=== PATIENT | female | born 1980 | race African-American/Black ===

== ENCOUNTER 2016-12-04 11:28 | Inpatient (IN) | payer OTHER ==
[2016-12-04 12:20] VITALS: BMI 35.4
--- NOTE | 2016-12-04 13:07 | HP ---
CIWA Score - CIWA Score Nausea/Vomitin-Int. Nausea w/Dry Heave Muscle Tremors: 4-Moderate,w/Arms Extend Anxiety: 4-Mod. Anxious/Guarded Agitation: 0-Normal Activity Paroxysmal Sweats: 3 Orientation: 0-Oriented Tacttile Disturbances: 0-None Auditory Disturbances: 0-None Visual Disturbances: 3-Moderate Sensitivity Headache: 0-None Present CIWA-Ar Total Score: 18 Admission ROS S - HPI Chief Complaint: "I am willing and ready for help for my long haul of drug abuse." Pt. is here to Detox from Alcohol. History of Present Illness: Pt. is a 36 YO female here to Detox from Alcohol. This is pt.'s first Detox admission at [facility]. Pt. had a Rehab admission at [facility] in 10/2016 and 11/2015 (did not complete either time). Longest period of sobriety: approx. 5 months (12/2015 - 04/2016). Exam Limitations: No Limitations - Ebola screening Have you traveled outside of the country in the last 21 days: No Have you had contact with anyone from an Ebola affected area: No Have you been sick,other than usual withdrawal symptoms: No Do you have a fever: No - Review of Systems Constitutional: Diaphoresis, Fever, Malaise, Changes in sleep EENT: reports: Tinnitus (Right Ear, Intermittent.) Respiratory: reports: SOB with Exertion, Productive cough Cardiac: reports: No Symptoms Reported GI: reports: Constipated, Nausea, Indigestion, Abdominal cramping : reports: No Symptoms Reported Musculoskeletal: reports: Joint Pain, Muscle Pain, Joint Stiffness Integumentary: reports: No Symptoms Reported Neuro: reports: Tremors Endocrine: reports: No Symptoms Reported Hematology: reports: No Symptoms Reported Psychiatric: reports: Judgement Intact, Mood/Affect Appropiate, Orientated x3, Anxious, Depressed (On Meds.) Other Systems: Reviewed and Negative Patient History - Patient Medical History Hx Anemia: No Hx Asthma: Yes (Takes Advair and uses Ventolin Inhaler.) Hx Chronic Obstructive Pulmonary Disease (COPD): No Hx Cancer: No Hx Cardiac Disorders: No Hx Congestive Heart Failure: No Hx Hypertension: No Hx Hypercholesterolemia: No Hx Pacemaker: No HX Cerebrovascular Accident: No Hx Seizures: No Hx Dementia: No Hx Diabetes: No Hx Gastrointestinal Disorders: No Hx Liver Disease: No Hx Genitourinary Disorders: No Hx Sexually Transmitted Disorders: No (Herpes Simplex (Oral); Not currently active.) Hx Renal Disease (ESRD): No Hx Thyroid Disease: No Hx Human Immunodeficiency Virus (HIV): No (Last Tested: 02/2016: NEGATIVE.) Hx Hepatitis C: No (Last Tested: 02/2016: NEGATIVE.) Hx Depression: Yes (On meds.) Hx Suicide Attempt: Yes (2016: OD meds.; PATIENT DENIES CURRENT SI / HI.) Hx Bipolar Disorder: Yes (On meds.) Hx Schizophrenia: No Other Medical History: DENIES. - Patient Surgical History Past Surgical History: No Hx Neurologic Surgery: No Hx Cataract Extraction: No Hx Cardiac Surgery: No Hx Lung Surgery: No Hx Breast Surgery: No Hx Breast Biopsy: No Hx Abdominal Surgery: No Hx Appendectomy: No Hx Cholecystectomy: No Hx Genitourinary Surgery: No Hx Section: No Hx Orthopedic Surgery: No Hx Hysterectomy: No Anesthesia Reaction: No - PPD History Previous Implant?: Yes Documented Results: Negative w/o proof Implanted On Prior [facility] Admission?: No PPD to be Administered?: Yes - Reproductive History Patient is a Female of Child Bearing Age (11 -55 yrs old): Yes Last Menstrual Period: 11/05/16 Patient : No - Smoking Cessation Smoking history: Current every day smoker Have you smoked in the past 12 months: Yes Aproximately how many cigarettes per day: 20 Cigars Per Day: 0 Hx Chewing Tobacco Use: No Initiated information on smoking cessation: Yes 'Breaking Loose' booklet given: 12/04/16 (GIVEN ON UNIT.) - Substance & Tx. History Hx Alcohol Use: Yes Hx Substance Use: Yes Substance Use Type: Alcohol, Marijuana Hx Substance Use Treatment: Yes (Previous Rehab admissions at [facility] (11/22 and 10/23).) - Substances Abused Alcohol Route: Oral Frequency: 3-6 times per week Amount used: 1.5 pints Vodka; 1 beer (22 oz.) Age of first use: 18 Date of Last Use: 12/02/16 Marijuana/Hashish Route: Smoking Frequency: Daily Amount used: 4-5 Joints. Age of first use: 23 Date of Last Use: 12/03/16 Family Disease History - Family Disease History Family Disease History: Diabetes: Sister, Respiratory: Son (Asthma; Tuberculosis (Treated).), Daughter (Asthma.) Admission Physical Exam [facility] - Vital Signs Vital Signs: Vital Signs - 24 hr 12/04/16 12:18 Temperature 98.3 F Pulse Rate 92 H Respiratory 18 Rate Blood Pressure 120/72 - Physical General Appearance: Yes: No Apparent Distress, Nourished, Appropriately Dressed , Tremorous, Anxious HEENTM: Yes: Hearing grossly Normal, Normocephalic, Normal Voice, IVAN, Pharynx Normal Respiratory: Yes: Chest Non-Tender, Lungs Clear, No Respiratory Distress, No Accessory Muscle Use Neck: Yes: No masses,lesions,Nodules, Supple, Trachea in good position Breast: Yes: Breast Exam Deferred Cardiology: Yes: Regular Rhythm, Regular Rate, S1, S2 Abdominal: Yes: Normal Bowel Sounds, Non Tender, Soft, Protuberent Genitourinary: Yes: Within Normal Limits Back: Yes: Decreased Range of Motion Musculoskeletal: Yes: Gait Steady, Joint Stiffness Extremities: Yes: Tremors Neurological: Yes: Fully Oriented, Alert, Normal Mood/Affect, Normal Response Integumentary: Yes: Normal Color, Dry, Warm Lymphatic: Yes: Within Normal Limits - Diagnostic (1) Alcohol dependence with uncomplicated withdrawal Current Visit: Yes Status: Acute (2) Cannabis dependence, uncomplicated Current Visit: Yes Status: Acute (3) Nicotine dependence Current Visit: Yes Status: Chronic Qualifiers: Nicotine product type: cigarettes Substance use status: uncomplicated Qualified Code(s): F17.210 - Nicotine dependence, cigarettes, uncomplicated (4) Asthma Current Visit: Yes Status: Chronic Qualifiers: Asthma severity: mild intermittent Asthma complication type: uncomplicated Qualified Code(s): J45.20 - Mild intermittent asthma, uncomplicated (5) History of bipolar disorder Current Visit: Yes Status: Chronic (6) History of depression Current Visit: Yes Status: Chronic Cleared for Admission [facility] - Detox or Rehab [facility] Level of Care: Medically Managed Detox Regimen/Protocol: Librium [facility] Breath Alcohol Content Breath Alcohol Content: 0 Urine Pregancy Test - Result Urine Test Results: Negative- NO Line Present Urine Drug Screen - Results Drug Screen Negative: No Urine Drug Screen Results: THC-Marijuana, OPI-Opiates
[2016-12-04] MEDS ORDERED: chlordiazePOXIDE HCL 25 MG CAPSULE PO PRN (15:49)
[2016-12-04] MEDS ORDERED: guaiFENesin/D-METHORPHAN HB 10 ML UNIT-DOSE CUPS PO PRN (15:49)
[2016-12-04] MEDS ORDERED: diphenhydrAMINE HCL 50 MG CAPSULE PO PRN (15:49)
[2016-12-04] MEDS ORDERED: ACETAMINOPHEN 325 MG TABLET (FP) PO PRN (15:49)
[2016-12-04] MEDS ORDERED: IBUPROFEN 400 MG TABLET (FP) PO PRN (15:49)
[2016-12-04] MEDS ORDERED: NICOTINE POLACRILEX 2 MG GUM BC PRN (15:49)
[2016-12-04] MEDS ORDERED: MAGNESIUM HYDROX 2400MG/30ML ORAL SUSPENSION 30 ML CUP PO PRN (15:49)
[2016-12-04] MEDS ORDERED: MAGNESIUM CITRATE 300 ML BOTTLE PO PRN (15:49)
[2016-12-04] MEDS ORDERED: hydrOXYzine PAMOATE 50 MG CAPSULE (FP) PO PRN (15:49)
[2016-12-04] MEDS ORDERED: chlordiazePOXIDE HCL 25 MG CAPSULE PO ONE (15:49)
[2016-12-04] MEDS ORDERED: P-EPHED 60MG/TRIPROLIDI 2.5MG TABLET PO PRN (15:49)
[2016-12-04] MEDS ORDERED: MAG HYDROX/AL HYDROX/SIMETH 30 ML UNIT-DOSE CUP PO PRN (15:49)
[2016-12-04] MEDS ORDERED: MENTHOL/PHENOL 1 EACH UD MM PRN (15:49)
[2016-12-04] MEDS ORDERED: LOPERAMIDE HCL 2 MG CAPSULE PO PRN (15:49)
[2016-12-04] MEDS ORDERED: ALBUTEROL SO4 6.7 GM HFA INHALER IH PRN (15:55)
[2016-12-04] MEDS ORDERED: NICOTINE 21 MG/24 HOURS TOPICAL PATCH TD SCH (17:30)
[2016-12-04] MEDS: chlordiazePOXIDE HCL 25 MG CAPSULE PO SCH ×2 (17:55→22:54)
[2016-12-04] MEDS ORDERED: BUDESONIDE/FORMETEROL FUMARATE 80/4.5 mcg INHALER IH SCH (22:00)
[2016-12-04] MEDS ORDERED: THIAMINE HCL 100 MG TABLET (FP) PO SCH (22:00)
[2016-12-04 22:05] LABS: URINE APPEARANCE CLEAR; URINE BILIRUBIN NEGATIVE (NEGATIVE); URINE BLOOD NEGATIVE (NEGATIVE); URINE COLOR LTYELLOW; URINE GLUCOSE (UA) NEGATIVE (NEGATIVE); URINE KETONE NEGATIVE (NEGATIVE); URINE LEUK ESTERASE NEGATIVE (NEGATIVE); URINE NITRITE NEGATIVE (NEGATIVE); URINE PROTEIN NEGATIVE (NEGATIVE); URINE UROBILINOGEN NEGATIVE mg/dL (0.2-1.0)
[2016-12-04 22:50] VITALS: PULSE 61
[2016-12-05 06:40] VITALS: BP 134/84; TEMP 97.9
[2016-12-05] MEDS: chlordiazePOXIDE HCL 25 MG CAPSULE PO SCH ×2 (06:48→11:53)
[2016-12-05 09:36] LABS: MCH 29.1 pg (25.7-33.7); MCHC 33.3 g/dl (32.0-36.0); MEAN CELL VOLUME 87.5 fl (80-96); MEAN PLT VOLUME 10.4 fl (7.5-11.1); PLATELET COUNT 182 K/MM3 (134-434); WHITE BLOOD COUNT 8.7 K/mm3 (4.0-10.0)
--- NOTE | 2016-12-05 09:38 | PN ---
[facility] Progress Note Note: pt was asked how she was doing she jumped out her bed, marched out of her room, cursing, screaming, threatening entire staff. counselor and medical staff tried to calm her down and make reason as to her needs, but she refused to comply to directions and became verbally abusive and verbally combative. Security called for pt to be escorted off the unit. Pt is AAOx3, ambulating, property given to pt.
--- NOTE | 2016-12-05 09:39 | DS ---
[facility] Detox Discharge Summary Admission Date: 12/04/16 Discharge Date: 12/05/16 - History Present History: Alcohol Dependence, Cannabis Dependence - Physical Exam Results Vital Signs: Vital Signs Temperature 97.9 F 12/05/16 06:00 Pulse Rate 61 12/05/16 06:00 Respiratory Rate 18 12/05/16 06:00 Blood Pressure 134/84 12/05/16 06:00 O2 Sat by Pulse Oximetry (%) - Treatment Hospital Course: Detox Protocol Followed, Detoxed Safely, Responded well, Discharged Condition Good, Rehab Referral Accepted - Medication Discharge Medications: Ambulatory Orders Albuterol Sulfate Inhaler - [Ventolin Hfa Inhaler -] 2 inh PO Q4H PRN 12/04/16 Aripiprazole [Abilify -] 5 mg PO DAILY 12/04/16 Divalproex Sodium [Depakote] 250 mg PO BID 12/04/16 Paroxetine HCl [Paxil -] 10 mg PO DAILY 12/04/16 Salmeterol/Fluticasone [Advair 250Mcg/50Mcg -] 1 puff IH BID 12/04/16 - Diagnosis (1) Alcohol dependence with uncomplicated withdrawal Status: Chronic (2) Cannabis dependence, uncomplicated Status: Chronic (3) Asthma Status: Chronic Qualifiers: Asthma severity: mild intermittent Asthma complication type: uncomplicated (4) History of bipolar disorder Status: Chronic (5) History of depression Status: Chronic (6) Nicotine dependence Status: Chronic Qualifiers: Nicotine product type: cigarettes Substance use status: uncomplicated Qualified Code(s): F17.210 - Nicotine dependence, cigarettes, uncomplicated; F17.210 - Nicotine dependence, cigarettes, uncomplicated - AMA Did Patient Leave Against Medical Advice: No (non compliant with unit rules)
[2016-12-05 09:56] LABS: SICKLE CELL SCREEN NEGATIVE (NEGATIVE)
--- NOTE | 2016-12-05 09:57 | EKG ---
Test Reason : Blood Pressure : / mmHG Vent. Rate : 066 BPM Atrial Rate : 066 BPM P-R Int : 166 ms QRS Dur : 090 ms QT Int : 388 ms P-R-T Axes : 034 045 018 degrees QTc Int : 406 ms NORMAL SINUS RHYTHM INCOMPLETE RBBB NO PREVIOUS ECGS AVAILABLE Confirmed by FERMÍN LLOYD MD ([id number]) on 12/05/2016 9:56:35 AM Referred By: Luciano Blanco Confirmed By:FERMÍN LLOYD MD
[2016-12-05] MEDS ORDERED: PRENATAL VITAMINS W/ FOLIC ACID TABLET (FP) PO SCH (10:00)
[2016-12-05 10:07] LABS: ALBUMIN 3.6 g/dl (3.4-5.0); ALK PHOS 74 U/L (45-117); ANION GAP 5 (8-16); BILIRUBIN,TOTAL 0.3 mg/dL (0.2-1.0); CO2 25 mmol/L (21-32); GLUCOSE,RANDOM 75 mg/dL (74-106); SGOT/AST 12 U/L (15-37); SGPT/ALT 18 U/L (12-78); TOT PROT 7.1 g/dl (6.4-8.2)
[2016-12-05 10:14] LABS: HIV 1 & 2 AB NEGATIVE; HIV 1 AGp24 NEGATIVE
[2016-12-05] MEDS ORDERED: chlordiazePOXIDE HCL 25 MG CAPSULE PO SCH (17:00)
[2016-12-06] MEDS ORDERED: chlordiazePOXIDE 5 MG CAPSULE PO SCH (17:00)
[2016-12-07] MEDS ORDERED: chlordiazePOXIDE HCL 10 MG CAPSULE PO SCH (17:00)
== END 2016-12-05 08:30 | disposition home or self-care (01) | DRG 775 ==
LOC: YASAS 11:28 → Y6N 16:34
PROVIDERS: ADMIT Internal Medicine; ATTEND Internal Medicine
PROC: HZ2ZZZZ Detoxification Services for Substance Abuse Treatment (ICD-10-PCS; principal; 2016-12-04)
DX: F10.230 Alcohol dependence with withdrawal, uncomplicated (principal); F12.20 Cannabis dependence, uncomplicated; F17.210 Nicotine dependence, cigarettes, uncomplicated; F31.9 Bipolar disorder, unspecified; J45.20 Mild intermittent asthma, uncomplicated; Z91.5 Personal history of self-harm
CPT/HCPCS: 36415; 80053; 80164; 81003; 85027; 85660; 86593; 86803; 87389; 93005; 93010

== ENCOUNTER 2017-12-08 13:57 | Inpatient (IN) | payer OTHER ==
[2017-12-08 14:44] VITALS: BMI 34.8
--- NOTE | 2017-12-08 15:55 | HP ---
Admission [facility] Chief Complaint: Patient presents for rehab services for Marajuana dependence. Allergies/Adverse Reactions: Allergies Allergy/AdvReac Type Severity Reaction Status Date / Time haloperidol [From Haldol] AdvReac STIFFNESS Verified 12/08/17 15:16 haloperidol lactate AdvReac STIFFNESS Verified 12/08/17 15:16 [From Haldol] History of Present Illness: Patient presents for rehab services for Marajuana dependence. Patient started smoking marajuana since age 26. Amount she smokes varies and dependent on mood. Last time she smoked was last night. PMH includes Bipolar disorder, tobacco use and asthma. Last attempt at rehab was one year ago here at [facility]. Patient denies using any other substance. Non-compliant with psychiatric medication. Denies SI/ HI. Exam Limitations: No Limitations - Ebola screening Have you traveled outside of the country in the last 21 days: No Have you had contact with anyone from an Ebola affected area: No Have you been sick,other than usual withdrawal symptoms: No Do you have a fever: No - Review of Systems Constitutional: No Symptoms Reported EENT: reports: No Symptoms Reported Respiratory: reports: Cough (loose cough, no sputum) Cardiac: reports: No Symptoms Reported GI: reports: No Symptoms Reported : reports: No Symptoms Reported Musculoskeletal: reports: Joint Pain (right ankle discomfort) Integumentary: reports: Other (multiple insect bites on arms) Neuro: reports: No Symptoms reported Endocrine: reports: No Symptoms Reported Hematology: reports: No Symptoms Reported Psychiatric: reports: Orientated x3, Anxious, Depressed Patient History - Patient Medical History Hx Anemia: No Hx Asthma: Yes (Takes Advair and uses Ventolin Inhaler.) Hx Chronic Obstructive Pulmonary Disease (COPD): No Hx Cancer: No Hx Cardiac Disorders: No Hx Congestive Heart Failure: No Hx Hypertension: No Hx Hypercholesterolemia: No Hx Pacemaker: No HX Cerebrovascular Accident: No Hx Seizures: No Hx Dementia: No Hx Diabetes: No Hx Gastrointestinal Disorders: No Hx Liver Disease: No Hx Genitourinary Disorders: No Hx Sexually Transmitted Disorders: No (Herpes Simplex (Oral); Not currently active.) Hx Renal Disease (ESRD): No Hx Thyroid Disease: No Hx Human Immunodeficiency Virus (HIV): No (Last Tested: 02/2017: NEGATIVE.) Hx Hepatitis C: No (Last Tested: 08/2017: NEGATIVE.) Hx Depression: Yes (not taking medication x one month) Hx Suicide Attempt: Yes (2016: OD meds.; PATIENT DENIES CURRENT SI / HI.) Hx Bipolar Disorder: Yes (not taking medication x one month) Hx Schizophrenia: No - Patient Surgical History Past Surgical History: No Hx Neurologic Surgery: No Hx Cataract Extraction: No Hx Cardiac Surgery: No Hx Lung Surgery: No Hx Breast Surgery: No Hx Breast Biopsy: No Hx Abdominal Surgery: No Hx Appendectomy: No Hx Cholecystectomy: No Hx Genitourinary Surgery: No Hx Section: No Hx Orthopedic Surgery: No Hx Hysterectomy: No Anesthesia Reaction: No - PPD History Date: 12/06/16 PPD to be Administered?: Yes - Reproductive History Last Menstrual Period: 12/02/17 Patient : No - Smoking Cessation Smoking history: Current every day smoker Have you smoked in the past 12 months: Yes Aproximately how many cigarettes per day: 18 Cigars Per Day: 0 Hx Chewing Tobacco Use: No Initiated information on smoking cessation: Yes 'Breaking Loose' booklet given: 12/08/17 - Substance & Tx. History Hx Alcohol Use: No Hx Substance Use: No Substance Use Type: Marijuana Hx Substance Use Treatment: Yes (11/2016 [facility] ) - Substances Abused Marijuana/Hashish Route: Smoking Frequency: Daily Amount used: 1-10 BLUNTS Age of first use: 26 Date of Last Use: 12/07/17 Family Disease History - Family Disease History Family Disease History: Diabetes: Sister, Respiratory: Son (Asthma; Tuberculosis (Treated).), Daughter (Asthma.) Admission Physical Exam [facility] - Vital Signs Vital Signs: Vital Signs - 24 hr 12/08/17 14:40 Temperature 99.2 F Pulse Rate 85 Respiratory 20 Rate Blood Pressure 134/83 - Physical General Appearance: Yes: No Apparent Distress, Nourished, Appropriately Dressed , Anxious HEENTM: Yes: EOMI, Hearing grossly Normal, Normal ENT Inspection, Normocephalic , Normal Voice, IVAN, Pharynx Normal Respiratory: Yes: Chest Non-Tender, No Respiratory Distress, No Accessory Muscle Use, Wheezing Neck: Yes: No masses,lesions,Nodules, Supple Breast: Yes: Breast Exam Deferred Cardiology: Yes: Regular Rhythm, Regular Rate, S1, S2 Abdominal: Yes: Normal Bowel Sounds, Non Tender, Soft Genitourinary: Yes: Within Normal Limits Back: Yes: Normal Inspection Musculoskeletal: Yes: full range of Motion, Gait Steady Extremities: Yes: Normal Inspection, Normal Range of Motion, Non-Tender Neurological: Yes: instrument lens generator II-XII NML intact, Fully Oriented, Alert, Motor Strength 5/5, Normal Response, Depressed Affect Integumentary: Yes: Normal Color, Dry, Warm, Other (multiple resolving insect bites on arms) Lymphatic: Yes: Within Normal Limits - Diagnostic (1) Asthma Current Visit: No Status: Chronic Qualifiers: Asthma severity: unspecified severity Asthma complication type: uncomplicated (2) Cannabis dependence, uncomplicated Current Visit: Yes Status: Chronic (3) History of bipolar disorder Current Visit: Yes Status: Chronic (4) Nicotine dependence Current Visit: Yes Status: Chronic Qualifiers: Nicotine product type: cigarettes Substance use status: uncomplicated Qualified Code(s): F17.210 - Nicotine dependence, cigarettes, uncomplicated Cleared for Admission [facility] - Detox or Rehab Claeared for Rehab Admission: Yes S Breath Alcohol Content Breath Alcohol Content: 0 Urine Pregancy Test - Result Urine Test Results: Negative- NO Line Present Urine Drug Screen - Results Drug Screen Negative: No Urine Drug Screen Results: THC-Marijuana Inpatient Rehab Admission - Initial Determination Are CD services needed?: Yes Free of communicable disease: Yes Not in need of hospitalization: Yes - Rehab Admission Criteria Previous failed treatment: Yes Poor recovery environment: Yes Comorbidities: Yes Lacks judgement: No Patient is meeting Inpatient Rehab admission criteria:: Yes
[2017-12-08] MEDS ORDERED: P-EPHED 60MG/TRIPROLIDI 2.5MG TABLET PO PRN (16:08)
[2017-12-08] MEDS ORDERED: MAGNESIUM CITRATE 300 ML BOTTLE PO PRN (16:08)
[2017-12-08] MEDS ORDERED: ACETAMINOPHEN 325 MG TABLET (FP) PO PRN (16:08)
[2017-12-08] MEDS ORDERED: IBUPROFEN 400 MG TABLET (FP) PO PRN (16:08)
[2017-12-08] MEDS ORDERED: MENTHOL/PHENOL 1 EACH UD MM PRN (16:08)
[2017-12-08] MEDS ORDERED: MAG HYDROX/AL HYDROX/SIMETH 30 ML UNIT-DOSE CUP PO PRN (16:08)
[2017-12-08] MEDS ORDERED: LOPERAMIDE HCL 2 MG CAPSULE PO PRN (16:08)
[2017-12-08] MEDS ORDERED: hydrOXYzine PAMOATE 25 MG CAPSULE (FP) PO PRN (16:08)
[2017-12-08] MEDS ORDERED: TUBERCULIN PPD 5 TU/0.1ML VIAL ID ONE ×2 (20:58→22:22)
[2017-12-08] MEDS ORDERED: MELATONIN 5 MG TABLETS PO PRN (22:00)
[2017-12-08] MEDS: BUDESONIDE/FORMETEROL FUMARATE 80/4.5 mcg INHALER IH SCH (22:05)
[2017-12-08] MEDS: ALBUTEROL SO4 8 GM HFA INHALER IH PRN (22:07)
[2017-12-08] MEDS: THIAMINE HCL 100 MG TABLET (FP) PO SCH (22:08)
[2017-12-08] MEDS ORDERED: PT OWN MED DRAWER 7, Y5N ONE (22:21)
[2017-12-09] MEDS: ALBUTEROL SO4 8 GM HFA INHALER IH PRN (08:53)
--- NOTE | 2017-12-09 09:59 | HP ---
Psychiatrist Admission - Data Date of interview: 12/09/17 Admission source: [facility] Identifying data: This si the first admission to [address] [place] [address]; litation for this 37 years old AA mother of 3 ,homeless,no financial support. Medical History: Significant for BA. Psychiatric History: patient is poor historian,quraded,suspicious,not willing to give details,defensive.according to her she has been depressed for a few years ,dx with Bipolar disorder.She reports 3-4 psychiatric hospitalizations most recent was in October 2017 to [facility] in [facility] due to severe depression,drinking ,using drugs.patient was treated with depakote for 2 weeks.She was also on Haldol and reports side effects from it as a stiffness.She states that this treatment dint help her at all and she is not willing to take psychotropic medications since it didnt work anyway.patient was under care of prsychiatrist at Health [facility] but stopped to see him a few weeks ago. Physical/Sexual Abuse/Trauma History: denies Vital Signs: Vital Signs - 24 hr 12/08/17 12/09/17 12/09/17 14:40 00:30 03:30 Temperature 99.2 F Pulse Rate 85 Respiratory 20 18 18 Rate Blood Pressure 134/83 Allergies/Adverse Reactions: Allergies Allergy/AdvReac Type Severity Reaction Status Date / Time No Known Drug Allergies Allergy Verified 12/08/17 16:26 haloperidol [From Haldol] AdvReac STIFFNESS Verified 12/08/17 15:16 haloperidol lactate AdvReac STIFFNESS Verified 12/08/17 15:16 [From Haldol] Date of last physical exam: 12/08/17 Concur with the findings of this exam: Yes - Substance Abuse/Tx History Hx Alcohol Use: Yes (long and extensive history of drinking) Hx Substance Use: Yes (reports smoking marijuana since 26 yo,1-10 blunts daily) Substance Use Type: Alcohol, Marijuana Hx Substance Use Treatment: Yes (no significant sobriety) Mental Status Exam - Mental Status Exam Alert and Oriented to: Time, Place, Person Cognitive Function: Grossly Intact Patient Appearance: Well Groomed Mood: Suspicious, Irritable Affect: Labile Patient Behavior: Guarded Speech Pattern: Clear Voice Loudness: Normal Thought Process: Goal Oriented Thought Disorder: Present Hallucinations: Denies Suicidal Ideation: Denies Homicidal Ideation: Denies Insight/Judgement: Fair Sleep: Fair Appetite: Good Muscle strength/Tone: Normal Gait/Station: Normal Psychiatric Findings - Problem List ([place] 1, 2,3) (1) Asthma Current Visit: Yes Status: Chronic Qualifiers: Asthma severity: unspecified severity Asthma complication type: uncomplicated (2) Alcohol dependence Current Visit: Yes Status: Chronic (3) Cannabis dependence, uncomplicated Current Visit: Yes Status: Chronic (4) Nicotine dependence Current Visit: Yes Status: Chronic Qualifiers: Nicotine product type: cigarettes Substance use status: uncomplicated Qualified Code(s): F17.210 - Nicotine dependence, cigarettes, uncomplicated (5) Bipolar disorder Current Visit: Yes Status: Chronic - Initial Treatment Plan Initial Treatment Plan: Will monitor progress,consider psychotropics if needed.Patient is reluctant to take medications at this time.
[2017-12-09] MEDS: BUDESONIDE/FORMETEROL FUMARATE 80/4.5 mcg INHALER IH SCH ×2 (10:04→23:05)
[2017-12-09] MEDS: PRENATAL VITAMINS W/ FOLIC ACID TABLET (FP) PO SCH (10:04)
--- NOTE | 2017-12-09 11:59 | EKG ---
Test Reason : Blood Pressure : / mmHG Vent. Rate : 080 BPM Atrial Rate : 080 BPM P-R Int : 162 ms QRS Dur : 088 ms QT Int : 374 ms P-R-T Axes : 064 037 024 degrees QTc Int : 431 ms NORMAL SINUS RHYTHM NORMAL ECG WHEN COMPARED WITH ECG OF 04-DEC-2016 16:46, NO SIGNIFICANT CHANGE WAS FOUND Confirmed by JAVY BATEMAN MD ([id number]) on 12/09/2017 11:59:03 AM Referred By: Confirmed By:JAVY BATEMAN MD
[2017-12-09 14:39] LABS: HEMATOCRIT 43.3 % (32.4-45.2); MCH 27.8 pg (25.7-33.7); MCHC 32.4 g/dl (32.0-36.0); MEAN CELL VOLUME 85.8 fl (80-96); MEAN PLT VOLUME 9.9 fl (7.5-11.1); PLATELET COUNT 238 K/MM3 (134-434); RBC 5.05 M/mm3 (3.60-5.2); RDW 15.1 % (11.6-15.6); WHITE BLOOD COUNT 6.2 K/mm3 (4.0-10.0)
--- NOTE | 2017-12-09 15:04 | PN ---
[facility] Progress Note Note: Laboratory Tests 12/09/17 09:30 WBC 6.2 RBC 5.05 Hgb 14.0 Hct 43.3 MCV 85.8 MCH 27.8 MCHC 32.4 RDW 15.1 Plt Count 238 D MPV 9.9 LABS WNL.
[2017-12-09 15:16] LABS: ALBUMIN 3.7 g/dl (3.4-5.0); ALK PHOS 89 U/L (45-117); ANION GAP 6 MMOL/L (8-16); BILIRUBIN,TOTAL 0.5 mg/dL (0.2-1); BLOOD UREA NITROGEN 11 mg/dL (7-18); CALCIUM 9.1 mg/dL (8.5-10.1); CHLORIDE 106 mmol/L (98-107); CO2 27 mmol/L (21-32); CREATININE 0.9 mg/dL (0.55-1.3); GLUCOSE,RANDOM 71 mg/dL (74-106); POTASSIUM 4.4 mmol/L (3.5-5.1); SGOT/AST 15 U/L (15-37); SGPT/ALT 19 U/L (13-61); SODIUM 140 mmol/L (136-145); TOT PROT 7.5 g/dl (6.4-8.2)
[2017-12-09] MEDS: THIAMINE HCL 100 MG TABLET (FP) PO SCH (23:05)
[2017-12-10] MEDS ORDERED: PT OWN MED DRAWER 7, Y5N ONE (08:52)
[2017-12-10] MEDS: BUDESONIDE/FORMETEROL FUMARATE 80/4.5 mcg INHALER IH SCH ×2 (09:51→21:44)
[2017-12-10] MEDS: ALBUTEROL SO4 8 GM HFA INHALER IH PRN (09:51)
[2017-12-10] MEDS: PRENATAL VITAMINS W/ FOLIC ACID TABLET (FP) PO SCH (09:51)
[2017-12-10] MEDS: NICOTINE POLACRILEX 2 MG GUM BC PRN (13:54)
[2017-12-10] MEDS: THIAMINE HCL 100 MG TABLET (FP) PO SCH (21:44)
[2017-12-11] MEDS: PRENATAL VITAMINS W/ FOLIC ACID TABLET (FP) PO SCH (10:50)
[2017-12-11] MEDS: BUDESONIDE/FORMETEROL FUMARATE 80/4.5 mcg INHALER IH SCH ×2 (10:50→21:36)
[2017-12-11 11:00] LABS: URINE APPEARANCE SLCLOUDY; URINE BILIRUBIN NEGATIVE (<2.0 mg/dL); URINE COLOR YELLOW; URINE GLUCOSE (UA) NEGATIVE (NEGATIVE); URINE KETONE NEGATIVE (NEGATIVE); URINE LEUK ESTERASE 1+ (NEGATIVE); URINE NITRITE NEGATIVE (NEGATIVE); URINE PROTEIN NEGATIVE (NEGATIVE); URINE UROBILINOGEN NEGATIVE mg/dL (0.2-1.0)
[2017-12-11 12:01] LABS: EPI CELLS RARE /HPF (FEW); URINE MUCUS MANY
[2017-12-11] MEDS: THIAMINE HCL 100 MG TABLET (FP) PO SCH (21:36)
[2017-12-12] MEDS ORDERED: PT OWN MED DRAWER 7, Y5N ONE ×2 (08:11→20:24)
[2017-12-12] MEDS: BUDESONIDE/FORMETEROL FUMARATE 80/4.5 mcg INHALER IH SCH ×2 (09:52→21:27)
[2017-12-12] MEDS: PRENATAL VITAMINS W/ FOLIC ACID TABLET (FP) PO SCH (09:52)
[2017-12-12] MEDS: THIAMINE HCL 100 MG TABLET (FP) PO SCH (21:27)
[2017-12-13 07:08] VITALS: PULSE 76
[2017-12-13] MEDS ORDERED: PT OWN MED DRAWER 7, Y5N ONE (08:07)
[2017-12-13] MEDS: ALBUTEROL SO4 8 GM HFA INHALER IH PRN (09:47)
[2017-12-13] MEDS: BUDESONIDE/FORMETEROL FUMARATE 80/4.5 mcg INHALER IH SCH ×2 (09:47→21:42)
[2017-12-13] MEDS: PRENATAL VITAMINS W/ FOLIC ACID TABLET (FP) PO SCH (09:47)
[2017-12-13] MEDS: THIAMINE HCL 100 MG TABLET (FP) PO SCH (21:42)
[2017-12-14] MEDS ORDERED: PT OWN MED DRAWER 7, Y5N ONE (08:41)
[2017-12-14] MEDS: BUDESONIDE/FORMETEROL FUMARATE 80/4.5 mcg INHALER IH SCH ×2 (09:40→21:35)
[2017-12-14] MEDS: PRENATAL VITAMINS W/ FOLIC ACID TABLET (FP) PO SCH (09:40)
[2017-12-14] MEDS: ALBUTEROL SO4 8 GM HFA INHALER IH PRN (09:40)
[2017-12-14] MEDS: THIAMINE HCL 100 MG TABLET (FP) PO SCH (21:45)
[2017-12-15] MEDS: ALBUTEROL SO4 8 GM HFA INHALER IH PRN (09:13)
[2017-12-15] MEDS: BUDESONIDE/FORMETEROL FUMARATE 80/4.5 mcg INHALER IH SCH ×2 (09:13→21:33)
[2017-12-15] MEDS: PRENATAL VITAMINS W/ FOLIC ACID TABLET (FP) PO SCH (09:13)
--- NOTE | 2017-12-15 13:06 | PN ---
[facility] Progress Note Note: Laboratory Last Values WBC 6.2 K/mm3 (4.0-10.0) 12/09/17 09:30 RBC 5.05 M/mm3 (3.60-5.2) 12/09/17 09:30 Hgb 14.0 GM/dL (10.7-15.3) 12/09/17 09:30 Hct 43.3 % (32.4-45.2) 12/09/17 09:30 MCV 85.8 fl (80-96) 12/09/17 09:30 MCH 27.8 pg (25.7-33.7) 12/09/17 09:30 MCHC 32.4 g/dl (32.0-36.0) 12/09/17 09:30 RDW 15.1 % (11.6-15.6) 12/09/17 09:30 Plt Count 238 K/MM3 (134-434) D 12/09/17 09:30 MPV 9.9 fl (7.5-11.1) 12/09/17 09:30 Sodium 140 mmol/L (136-145) 12/09/17 09:30 Potassium 4.4 mmol/L (3.5-5.1) 12/09/17 09:30 Chloride 106 mmol/L (98-107) 12/09/17 09:30 Carbon Dioxide 27 mmol/L (21-32) 12/09/17 09:30 Anion Gap 6 MMOL/L (8-16) L 12/09/17 09:30 BUN 11 mg/dL (7-18) 12/09/17 09:30 Creatinine 0.9 mg/dL (0.55-1.3) 12/09/17 09:30 Creat Clearance w eGFR > 60 (>60) 12/09/17 09:30 Random Glucose 71 mg/dL (74-106) L 12/09/17 09:30 Calcium 9.1 mg/dL (8.5-10.1) 12/09/17 09:30 Total Bilirubin 0.5 mg/dL (0.2-1) 12/09/17 09:30 AST 15 U/L (15-37) 12/09/17 09:30 ALT 19 U/L (13-61) 12/09/17 09:30 Alkaline Phosphatase 89 U/L (45-117) 12/09/17 09:30 Total Protein 7.5 g/dl (6.4-8.2) 12/09/17 09:30 Albumin 3.7 g/dl (3.4-5.0) 12/09/17 09:30 Urine Color Yellow 12/11/17 08:30 Urine Appearance Slcloudy 12/11/17:30 Urine pH 5.0 (5.0-8.0) 12/11/17 08:30 Ur Specific [place] 1.025 (1.004-1.035) 12/11/17 08:30 Urine Protein Negative (NEGATIVE) 12/11/17 08:30 Urine Glucose (UA) Negative (NEGATIVE) 12/11/17:30 Urine Ketones Negative (NEGATIVE) 12/11/17: Urine Blood Negative (NEGATIVE) 12/11/17:30 Urine Nitrite Negative (NEGATIVE) 12/11/17 08:30 Urine Bilirubin Negative (<2.0 mg/dL) 12/11/17: Urine Urobilinogen Negative mg/dL (0.2-1.0) 12/11/17 08:30 Ur Leukocyte Esterase 1+ (NEGATIVE) H 12/11/17 08:30 Urine WBC (Auto) 14 /hpf (3-5) 12/11/17:30 Urine RBC (Auto) 10-20 /hpf (0-3) 12/11/17:30 Ur Epithelial Cells Rare /HPF (FEW) 12/11/17 08:30 Urine Mucus Many 12/11/17 08:30 RPR Titer Nonreactive (NONREACTIVE) 12/09/17 09:30 Patient report to RN needed to see a provider. Treasury Director went to see patient, patient refuse to be seen by provider
[2017-12-15] MEDS: THIAMINE HCL 100 MG TABLET (FP) PO SCH (21:33)
[2017-12-16] MEDS: ALBUTEROL SO4 8 GM HFA INHALER IH PRN (07:16)
[2017-12-16] MEDS ORDERED: PT OWN MED DRAWER 7, Y5N ONE ×3 (08:46→19:05)
[2017-12-16] MEDS: BUDESONIDE/FORMETEROL FUMARATE 80/4.5 mcg INHALER IH SCH ×2 (09:56→23:06)
[2017-12-16] MEDS: PRENATAL VITAMINS W/ FOLIC ACID TABLET (FP) PO SCH (09:56)
[2017-12-16] MEDS: NICOTINE POLACRILEX 2 MG GUM BC PRN ×2 (14:11→19:05)
[2017-12-16] MEDS: THIAMINE HCL 100 MG TABLET (FP) PO SCH (23:06)
[2017-12-17] MEDS: BUDESONIDE/FORMETEROL FUMARATE 80/4.5 mcg INHALER IH SCH ×2 (10:11→21:23)
[2017-12-17] MEDS: PRENATAL VITAMINS W/ FOLIC ACID TABLET (FP) PO SCH (10:12)
[2017-12-17] MEDS: ALBUTEROL SO4 8 GM HFA INHALER IH PRN (10:12)
[2017-12-17] MEDS: MAGNESIUM HYDROX 2400MG/30ML ORAL SUSPENSION 30 ML CUP PO PRN (10:16)
[2017-12-17] MEDS: NICOTINE POLACRILEX 2 MG GUM BC PRN (19:34)
[2017-12-17] MEDS: THIAMINE HCL 100 MG TABLET (FP) PO SCH (21:23)
[2017-12-18] MEDS: ALBUTEROL SO4 8 GM HFA INHALER IH PRN (07:11)
[2017-12-18] MEDS: BUDESONIDE/FORMETEROL FUMARATE 80/4.5 mcg INHALER IH SCH ×2 (09:55→21:29)
[2017-12-18] MEDS: PRENATAL VITAMINS W/ FOLIC ACID TABLET (FP) PO SCH (09:55)
[2017-12-18] MEDS: NICOTINE POLACRILEX 2 MG GUM BC PRN ×2 (13:55→17:41)
[2017-12-18] MEDS: MAGNESIUM HYDROX 2400MG/30ML ORAL SUSPENSION 30 ML CUP PO PRN (14:43)
[2017-12-18] MEDS: THIAMINE HCL 100 MG TABLET (FP) PO SCH (21:29)
[2017-12-19] MEDS: ALBUTEROL SO4 8 GM HFA INHALER IH PRN (08:01)
[2017-12-19] MEDS: PRENATAL VITAMINS W/ FOLIC ACID TABLET (FP) PO SCH (09:52)
[2017-12-19] MEDS: BUDESONIDE/FORMETEROL FUMARATE 80/4.5 mcg INHALER IH SCH ×2 (09:52→21:08)
[2017-12-19] MEDS ORDERED: PT OWN MED DRAWER 7, Y5N ONE (10:02)
[2017-12-19] MEDS: NICOTINE POLACRILEX 2 MG GUM BC PRN (10:14)
[2017-12-19] MEDS: THIAMINE HCL 100 MG TABLET (FP) PO SCH (21:08)
[2017-12-20] MEDS ORDERED: PT OWN MED DRAWER 7, Y5N ONE ×2 (07:47→09:08)
[2017-12-20] MEDS: NICOTINE POLACRILEX 2 MG GUM BC PRN (08:39)
[2017-12-20] MEDS: BUDESONIDE/FORMETEROL FUMARATE 80/4.5 mcg INHALER IH SCH ×2 (09:45→21:14)
[2017-12-20] MEDS: PRENATAL VITAMINS W/ FOLIC ACID TABLET (FP) PO SCH (09:45)
[2017-12-20] MEDS: THIAMINE HCL 100 MG TABLET (FP) PO SCH (21:14)
[2017-12-21] MEDS: ALBUTEROL SO4 8 GM HFA INHALER IH PRN (08:15)
[2017-12-21] MEDS: guaiFENesin/D-METHORPHAN HB 10 ML UNIT-DOSE CUPS PO PRN (08:24)
[2017-12-21] MEDS: NICOTINE POLACRILEX 2 MG GUM BC PRN ×2 (08:24→13:45)
[2017-12-21] MEDS: PRENATAL VITAMINS W/ FOLIC ACID TABLET (FP) PO SCH (09:29)
[2017-12-21] MEDS: BUDESONIDE/FORMETEROL FUMARATE 80/4.5 mcg INHALER IH SCH ×2 (09:29→21:32)
--- NOTE | 2017-12-21 15:39 | PN ---
[facility] Progress Note Note: PT SCHEDULED FOR D/C IN A.M. REFERRED TO [facility]. COURTES[facility] SENT TO [facility].
--- NOTE | 2017-12-21 15:54 | PN ---
Psychiatric Progress Note Vital Signs: Vital Signs Period Temp Pulse Resp BP Sys/Horton Pulse Ox Last 24 Hr - Date of Session: 12/21/17 Chief Complaint:: My sleep is still big problem. HPI: Alcohol,Cannabis dependence comorbid with Bipolar disorder. ROS: BA. Current Medications: Active Medications Generic Name Dose Route Start Last Admin Trade Name Freq PRN Reason Stop Dose Admin Acetaminophen 650 mg 12/08/17 16:08 Tylenol - PO Q4H PRN FEVER Al Hydroxide/Mg Hydroxide 30 ml 12/08/17 16:08 Mylanta Oral Suspension - PO Q6H PRN DYSPEPSIA Albuterol Sulfate 2 puff 12/08/17 16:10 12/21/17 08:15 Ventolin Hfa Inhaler - IH 2 puff Q4H PRN Administration ASTHMA Budesonide/Formoterol Fumarate 2 puff 12/08/17 22:00 12/21/17 09:29 Symbicort 80/4.5mcg - IH Not Given BID MARISOL Eucalyptus/Menthol/Phenol/Sorbitol 1 each 12/08/17 16:08 Cepastat Lozenge - MM Q4H PRN SORE THROAT Guaifenesin 10 ml 12/08/17 16:08 12/21/17 08:24 Robitussin Dm - PO 10 ml Q6H PRN Administration COUGH Hydroxyzine Pamoate 25 mg 12/08/17 16:08 Vistaril - PO Q4H PRN AGITATION Ibuprofen 400 mg 12/08/17 16:08 Motrin - PO Q6H PRN Pain level 4-6 Loperamide HCl 4 mg 12/08/17 16:08 Imodium - PO Q6H PRN DIARRHEA Magnesium Citrate 300 ml 12/08/17 16:08 12/19/17 12:17 Citroma - PO 300 ml Q48H PRN Administration CONSTIPATION Magnesium Hydroxide 30 ml 12/08/17 16:08 12/18/17 14:43 Milk Of Magnesia - PO 30 ml DAILY PRN Administration CONSTIPATION Melatonin 5 mg 12/08/17 22:00 12/20/17 21:14 Melatonin PO 5 mg HS PRN Administration INSOMNIA Nicotine Polacrilex 2 mg 12/08/17 16:08 12/21/17 13:45 Nicorette Gum - BC 2 mg Q2H PRN Administration NICOTINE REPLACEMENT RX Multivit/Folic Acid/Iron 1 tab 12/09/17 10:00 12/21/17 09:29 Vitamins (Sjr) - PO Not Given DAILY MARISOL Pseudoephedrine/Triprolidine 1 combo 12/08/17 16:08 Actifed - PO TID PRN NASAL CONGESTION Thiamine HCl 100 mg 12/08/17 22:00 12/20/17 21:14 Vitamin B1 - PO 100 mg HS MARISOL Administration Current Side Effect: No Lab tests ordered: No Lab tests reviewed: Yes Provider note:: Chart was revuewed,treatment plan has been discussed with the patient.She reported ongoing sleeping difficulties and feeling nervious specially at night time,preccupied with negative thoughts.treatment plan including medication management has been discussed with the patient .Properties of Melatonin and Vistaril has been discussed with the patient including side effects,benefits and dose adjustment. Psychotherapy,supportive therapy provided. Total face to face time:: 30 Mental Status Exam - Mental Status Exam Alert and Oriented to: Time, Place, Person Cognitive Function: Grossly Intact Patient Appearance: Well Groomed Mood: Anxious Affect: Labile Patient Behavior: Cooperative Speech Pattern: Clear Voice Loudness: Normal Thought Process: Goal Oriented Thought Disorder: Not Present Hallucinations: Denies Suicidal Ideation: Denies Homicidal Ideation: Denies Insight/Judgement: Fair Sleep: Difficulty falling asleep Appetite: Good Muscle strength/Tone: Normal Gait/Station: Normal Psychiatric Treatment Plan - Problem List (1) Asthma Current Visit: Yes Qualifiers: Asthma severity: unspecified severity Asthma complication type: uncomplicated (2) Alcohol dependence Current Visit: Yes (3) Cannabis dependence, uncomplicated Current Visit: Yes (4) Nicotine dependence Current Visit: Yes Qualifiers: Nicotine product type: cigarettes Substance use status: uncomplicated Qualified Code(s): F17.210 - Nicotine dependence, cigarettes, uncomplicated (5) Bipolar disorder Current Visit: Yes
[2017-12-21] MEDS ORDERED: MELATONIN 5 MG TABLETS PO PRN (15:55)
[2017-12-21] MEDS: THIAMINE HCL 100 MG TABLET (FP) PO SCH (21:32)
[2017-12-22] MEDS: guaiFENesin/D-METHORPHAN HB 10 ML UNIT-DOSE CUPS PO PRN (06:50)
[2017-12-22] MEDS: NICOTINE POLACRILEX 2 MG GUM BC PRN (06:50)
[2017-12-22] MEDS: ALBUTEROL SO4 8 GM HFA INHALER IH PRN (06:50)
[2017-12-22 06:52] VITALS: BP 125/85; TEMP 98.5
== END 2017-12-22 08:55 | disposition home or self-care (01) | DRG 772 ==
LOC: YASAS 13:57 → Y3E 16:23
PROVIDERS: ADMIT Psychiatry & Neurology Psychiatry; ATTEND Psychiatry & Neurology Psychiatry
PROC: HZ42ZZZ Group Counseling for Substance Abuse Treatment, Cognitive-Behavioral (ICD-10-PCS; principal; 2017-12-08)
DX: F10.20 Alcohol dependence, uncomplicated (principal); F12.20 Cannabis dependence, uncomplicated; F17.210 Nicotine dependence, cigarettes, uncomplicated; F31.9 Bipolar disorder, unspecified; J45.909 Unspecified asthma, uncomplicated; Z88.8 Allergy status to other drugs, medicaments and biological substances; Z91.5 Personal history of self-harm; Z59.0 Homelessness
CPT/HCPCS: 36415; 80053; 81003; 81015; 85027; 86593; 93005; 93010

== ENCOUNTER 2019-09-19 02:43 | Emergency (ER) | payer OTHER ==
[2019-09-19 02:57] VITALS: BP 130/78; PULSE 76; TEMP 98; BMI 23.1
--- NOTE | 2019-09-19 03:27 | PDOC ---
Attending Attestation - Resident Resident Name: Shazia Su - ED Attending Attestation I have performed the following: I have examined & evaluated the patient, The case was reviewed & discussed with the resident, I agree w/resident's findings & plan - HPI HPI: 09/19/19 03:18 Pt comes with multiple complaints: muscle pains in her legs; elevated depakene level. Pt had been admitted to the psych unit at [facility]. She was being given high levels of depakote. Upon discharge, her depakote level was 137 (upper therapeutic limit is 120) pt was told to follow. SHe takes 1g QHS; tonight she took only 500mg,because she is worried about her elevated depakote levels. Since her release from the hospital, she had sex and now has itchinbess and she worries that she may have GC, Chlamydia. - Physicial Exam PE: 09/19/19 03:21 Pt has no abd pain and no flank pain Heart and lungs normal normal flank; no pain with percussion no edema of extremities. Afebrile Pt appears well - Medical Decision Making 09/19/19 03:27 If depakote level and UA normal, pt can go home. CPK and depakote level normal UA shows UTI; pt will be called with STD results. 09/19/19 04:17 stable for d/c home Discharge - Discharge Information Problems reviewed: Yes Clinical Impression/Diagnosis: UTI (urinary tract infection) Qualifiers: Urinary tract infection type: site unspecified Hematuria presence: without hematuria Qualified Code(s): N39.0 - Urinary tract infection, site not specified Condition: Fair Disposition: HOME - Additional Discharge Information Prescriptions: Cephalexin [Keflex] 500 mg PO BID #14 capsule - Follow up/Referral CallBack Reminder: test result - Patient Discharge Instructions Patient Printed Discharge Instructions: DI for Urinary Tract Infection (UTI) Additional Instructions: You came into the emergency department for pain when you urinate. Urinalysis shows signs of a urinary tract infection. Antibiotics prescription has been sent to your pharmacy. Take as instructed. Follow up with your primary care physician this week to discuss this ED visit and for further evaluation of your symptoms. Your care is not complete until you do so. Call and make an appointment. The other esting will likely result in a couple days. You will be called if there is a positive result. Immediate medical attention is required if you experience: high fevers, chills, persistent vomiting, stop urinating, or any new or concerning symptoms. If you think you have an emergency, call for medical help right away. - Post Discharge Activity
--- NOTE | 2019-09-19 03:44 | PDOC ---
History of Present Illness - General Chief Complaint: Pain Stated Complaint: ABD PAIN Time Seen by Provider: 09/19/19 03:13 - History of Present Illness Initial Comments: HPI: 38yo F with PMH of bipolar disorder, asthma presenting with left leg pain since Thu and abdominal discomfort x 1 week. Patient reports she has recently had unprotected intercourse and since then has had lower abdominal discomfort. Reports dysuria but no hematuria. Is not sure if she has abnormal vaginal discharge. No nausea or vomiting. Last bowel movement was this morning and was a normal formed brown stool without blood. Denies surgical history. Last menstrual period was at the beginning of the month. The left leg pain is located along the lateral aspect from her knee to the hip. It is exacerbated if she moves in a certain way. No fevers, chills, chest pain, or shortness of breath. PCP: Dr Casiano ROS: Constitutional: no fever, no chills HEENT: no throat pain, no dysphagia Cardiovascular: no chest pain, no palpitations Respiratory: no cough, no shortness of breath Gastrointestinal: +abdominal pain, no nausea Genitourinary: +dysuria, no hematuria Musculoskeletal: no myalgia, no arthralgia Skin: no rash, no itching Neurologic: no headache, no weakness Psych: no agitation, no anxiety PE: General: Awake, alert, and fully oriented, in no acute distress Head: No signs of trauma Eyes: EOMI, sclera anicteric ENT: Moist mucus membranes Neck: Normal ROM, supple Lungs: Lungs clear, Normal breath sounds Cardio: Regular rhythm, S1 and S2 present Abdomen: Tender to palpation in the suprapubic region. Soft, nondistended. No guarding, no rebound, no masses. Mild left CVA tenderness. No right CVA tenderness. Extremities: Normal range of motion, Distal pulses present Skin: Warm, Dry, normal turgor Neurologic: Cranial nerves II through XII grossly intact. Normal speech ED Course/MDM: DDX including but not limited to UTI/pyelonephritis, STI, , MSK Complaining of left leg pain in the region of the IT band Labs 09/19/19 03:35 CMP Creatine Kinase 190 U/L (26-192) 09/19/19 03:30 Creatine Kinase Index 1.2 % (0.0-5.0) 09/19/19 03:30 CK-MB (CK-2) 2.4 ng/mL (0.5-3.6) 09/19/19 03:30 CK normal UA with signs of infection; will treat with keflex 09/19/19 04:07 Prescription sent to pharmacy Callback request placed for GC result Return precautions Stable for discharge Past History - Medical History Allergies/Adverse Reactions: Allergies Allergy/AdvReac Type Severity Reaction Status Date / Time No Known Drug Allergies Allergy Verified 09/19/19 02:57 haloperidol [From Haldol] AdvReac STIFFNESS Verified 09/19/19 02:57 haloperidol lactate AdvReac STIFFNESS Verified 09/19/19 02:57 [From Haldol] Home Medications: Ambulatory Orders Salmeterol/Fluticasone [Advair 250Mcg/50Mcg -] 1 puff IH BID 12/04/16 Albuterol Sulfate Inhaler - [Ventolin HFA Inhaler -] 2 inh PO Q4H PRN #1 inhaler 12/21/17 Fluticasone/Salmeterol [Advair 250-50 Diskus] 1 each IH BID #1 blst.w.dev 12/21/17 Cephalexin [Keflex] 500 mg PO BID #14 capsule 09/19/19 Anemia: No Asthma: Yes (Takes Advair and uses Ventolin Inhaler.) Cancer: No Cardiac Disorders: No CVA: No COPD: No CHF: No Dementia: No Diabetes: No GI Disorders: No Disorders: No HTN: No Hypercholesterolemia: No Kidney Stones: No Liver Disease: No Seizures: No Thyroid Disease: No - Surgical History Abdominal Surgery: No Appendectomy: No Cardiac Surgery: No Cholecystectomy: No Lung Surgery: No Neurologic Surgery: No Orthopedic Surgery: No - Reproductive History PID: No - Psycho-Social/Smoking History Smoking History: Never smoked Have you smoked in the past 12 months: Yes Number of Cigarettes Smoked Daily: 18 Cigars Per Day: 0 Information on smoking cessation initiated: No 'Breaking Loose' booklet given: 12/08/17 - Substance Abuse Hx (Audit-C & DAST Scrn) How often the patient has a drink containing alcohol: Never Score: In Men: 4 or > Positive; In Women: 3 or > Positive: 0 Screen Result (Pos requires Nsg. Audit-10AR): Negative In the last yr the pt used illegal drug/Rx for NonMed reason: No Score: Yes response is considered Positive: 0 Screen Result (Positive result requires Nsg. DAST-10): Negative *Physical Exam - Vital Signs Last Vital Signs Temp Pulse Resp BP Pulse Ox 98 F 76 20 130/78 100 09/19/19 02:45 09/19/19 02:45 09/19/19 02:45 09/19/19 02:45 09/19/19 02:45 Discharge - Discharge Information Problems reviewed: Yes Clinical Impression/Diagnosis: UTI (urinary tract infection) Qualifiers: Urinary tract infection type: site unspecified Hematuria presence: without hematuria Qualified Code(s): N39.0 - Urinary tract infection, site not specified Condition: Fair Disposition: HOME - Additional Discharge Information Prescriptions: Cephalexin [Keflex] 500 mg PO BID #14 capsule - Follow up/Referral CallBack Reminder: test result - Patient Discharge Instructions Patient Printed Discharge Instructions: DI for Urinary Tract Infection (UTI) Additional Instructions: You came into the emergency department for pain when you urinate. Urinalysis shows signs of a urinary tract infection. Antibiotics prescription has been sent to your pharmacy. Take as instructed. Follow up with your primary care physician this week to discuss this ED visit and for further evaluation of your symptoms. Your care is not complete until you do so. Call and make an appointment. The other esting will likely result in a couple days. You will be called if there is a positive result. Immediate medical attention is required if you experience: high fevers, chills, persistent vomiting, stop urinating, or any new or concerning symptoms. If you think you have an emergency, call for medical help right away. - Post Discharge Activity
[2019-09-19 03:57] LABS: URINE APPEARANCE CLEAR; URINE BILIRUBIN NEGATIVE (NEGATIVE); URINE COLOR YELLOW; URINE GLUCOSE (UA) NEGATIVE (NEGATIVE); URINE KETONE NEGATIVE (NEGATIVE); URINE LEUK ESTERASE 1+ (NEGATIVE); URINE NITRITE POSITIVE (NEGATIVE); URINE PROTEIN NEGATIVE (NEGATIVE); URINE UROBILINOGEN 0.2 mg/dL (0.2-1.0)
[2019-09-19] MEDS ORDERED: CEPHALEXIN MONOHYDRATE 500 MG CAPSULE (UD) PO ONE (04:15)
[2019-09-19] MEDS ORDERED: CEPHALEXIN MONOHYDRATE 500 MG CAPSULE (UD) ONE (04:17)
[2019-09-19 04:23] LABS: URINE RBC 5 /uL (0-23.9); URINE WBC 197 /uL (0-25.8)
[2019-09-19 04:24] LABS: EPI CELLS 4 /uL (0-25.1); HYALINE CASTS 6 /uL (0-3.1); URINE BACTERIA 23716 /uL (0-1359)
== END 2019-09-19 04:30 | disposition home or self-care (01) ==
LOC: JER 02:43
DX: N39.0 Urinary tract infection, site not specified (principal)
CPT/HCPCS: 36415; 80164; 81003; 82550; 82553; 84703; 87491; 87591; 87661; 99283-25

== ENCOUNTER 2020-08-22 15:39 | Emergency (ER) | payer OTHER ==
[2020-08-22 15:48] VITALS: BP 124/77; PULSE 76; TEMP 98.2; BMI 25.7
[2020-08-22] MEDS ORDERED: IBUPROFEN 400 MG TABLET (FP) PO ONE ×2 (16:41→16:45)
== END 2020-08-22 17:04 | disposition home or self-care (01) ==
LOC: JERFT 15:39 → JER 15:39 → JERFT 17:04
DX: S93.401A Sprain of unspecified ligament of right ankle, initial encounter (principal); S80.212A Abrasion, left knee, initial encounter
CPT/HCPCS: 73610-TC-RT-FY; 73630-TC-RT-FY; 99283-25